=== PATIENT | male | born 1945 | race Caucasian/White ===

== ENCOUNTER 2018-04-05 01:40 | Emergency (ER) | payer MEDICARE, OTHER ==
[~2018-04-05] VITALS: Ht 165.1 cm; Wt 65.8 kg
[~2018-04-05 01:40] MED LIST: ALLOPURINOL300 MG PO; ATENOLOL50 MG; LISINOPRIL10 MG PO; METFORMIN HCL500 MG PO; PRAVASTATIN SOD40 MG; RANITIDINE HCL300 MG; TAMSULOSIN HCL0.4 MG
--- NOTE | 2018-04-05 03:58 | Diagnostic Imaging Report ---
FOOT RIGHT COMPLETE Comparison: None Clinical history: Crate fell on foot, pain Findings: See impression. Mild midfoot and first MTP degenerative changes. Plantar calcaneal spur. Vascular calcifications. Impression: Comminuted, essentially nondisplaced fracture of the first digit proximal phalanx with intra-articular extension into the IP joint. Associated soft tissue swelling. Signed by: Dr Mery Cota MD on 04/05/2018 3:55 AM
[2018-04-05] MEDS ORDERED: LIDOCAINE 5% PATCH TP SCH (04:30)
[2018-04-05] MEDS ORDERED: TRAMADOL HCL 50 MG TAB PO ONE (04:45)
== END 2018-04-05 05:19 | disposition home or self-care (01) ==
LOC: ER 01:40
DX: M79.671 Pain in right foot (principal); S92.414A Nondisplaced fracture of proximal phalanx of right great toe, initial encounter for closed fracture; W20.8XXA Other cause of strike by thrown, projected or falling object, initial encounter; Y92.008 Other place in unspecified non-institutional (private) residence as the place of occurrence of the external cause
CPT/HCPCS: 99283

== ENCOUNTER → 2019-04-09 | Outpatient (CLI) | payer MEDICARE ==
--- NOTE | 2019-04-10 09:01 | Diagnostic Imaging Report ---
Bone Scan, delayed phase INDICATION: Other specified disorder of bone COMPARISON: None REPORT: Approximately 3 hours following intravenous administration of 25 mCi of Tc-99m MDP, delayed total body images in the anterior and posterior projections and selected spot images were obtained. Focal moderate to markedly increased tracer activity is seen on the right side of T8 and in the midline of L4. Otherwise, distribution of tracer activity is unremarkable throughout the skeletal system. No abnormal accumulation of tracer is seen in the soft tissues or urinary tract. IMPRESSION: Acute osteoblastic in T8 and L4 are nonspecific in appearance and may be due to an post-traumatic or inflammatory/degenerative process; less likely neoplastic process in this patient without a diagnosis of cancer. Signed by: Dr. Tonja Godinez M.D. on 04/10/2019 8:58 AM
== END ==
LOC: NM 08:43
PROVIDERS: ATTEND Internal Medicine
DX: M85.80 Other specified disorders of bone density and structure, unspecified site (principal)
CPT/HCPCS: 78306; A9503

== ENCOUNTER 2019-08-10 10:49 | Emergency (ER) | payer MEDICARE ==
[~2019-08-10] VITALS: Ht 165.1 cm; Wt 65.8 kg
--- OUTSIDE RECORDS SUMMARY | 2019-08-10 10:51 | XMS REPORT ---
Author Author [facility] t Organization [facility] Address Unknown Phone Unavailable Care Team Providers Care Outdoor Studies Professor Name Role Phone NONSTAFF PP Unavailable Chuyita GUO Unavailable Unavailable Wade BUSTAMANTE Unavailable Unavailable Payers Payer Name Policy Type Policy Number Effective Date Expiration D ate [employer] Medicare Advantage [id number] 2008 00:00:00 [facility] [id number] Problems Condition Name Condition Details Condition Category Status Onset Date Resolution Date Last Treatment Date Treating Clinician Comments Urinary tract infection Urinary tract infection Problem Active Allergies, Adverse Reactions, Alerts This patient has no known allergies or adverse reactions. Medications Ordered Medication Name Filled Medication Name Start Date Stop Da te Current Medication? Ordering Clinician Indication Dosage Frequency Signature (SIG) Comments Components Allopurinol 300 Mg Tablet Allopurinol 300 Mg Tablet Yes 300 Twice A Day Atenolol 50 Mg Tablet Atenolol 50 Mg Tablet Yes Daily Lisinopril 10 Mg Tablet Lisinopril 10 Mg Tablet Yes 40 Daily Metformin Hcl 500 Mg Tablet Metformin Hcl 500 Mg Tablet Yes 500 Twice A Day Pravastatin Sodium 40 Mg Tablet Pravastatin Sodium 40 Mg Tablet Yes 40 Bedtime Ranitidine Hcl 300 Mg Tablet Ranitidine Hcl 300 Mg Tablet Y es Bedtime Tamsulosin Hcl 0.4 Mg Cap.er.24h Tamsulosin Hcl 0.4 Mg Cap.er.24h Yes Daily Encounters Start Date/Time End Date/Time Encounter Type Admission Type [facility] Care Department Encounter ID 2018-04-05 01:40:00 2018-04-05 05:19:00 Departed Emergency Room 1 [facility] [id number] Results Test Description Test Time Test Comments Text Results Atomic Results Result Comments BONE DXA DUAL ENERGY 2019-04-29 16:19:00 [place] [address] Patient Name: MANUEL MAHAN MR #: [id number] : 1945 Age/Sex: 73/M Req #: [id number] Adm Physician: Ordered by: SHEBA GUO MD Report #: [id number] Location: DX Room/Bed: Procedure: [id number] DX/BONE DXA DUAL ENERGY Exam Date: Exam Time: REPORT STATUS: Signed Exam: Bone mineral density study. History: 73-year-old male. Comparison: None. Discussion: Evaluation of the left hip and lumbar spine was performed utilizing DEXA Hologic bone densitometer. The study is technically adequate. The patient's fracture risk is compared to an age-matched control. Lumbar spine total bone mineral density: 1.367 gm/cm2, T-score is 2.5, Z-score is 3.6. No previous comparison. Left femoral neck bone mineral density: 0.805 g/cm2, T-score is -0.9, Z-score is 0.4. No previous comparison.. Impression: Bone mineralization by WHO Classification using T score is normal, fracture risk is low. <T score: NL = -1 or higher Osteopenia = -1 to -2.5 Osteoporosis = -2.5 or lower Z score: < - 1.5 concerning for path> Recommendations: Medical evaluation for secondary causes of low bone mineral density may be appropriate. Correlate clinically for the necessity and timing of the next bone mineral density study. National Osteoporosis Foundation recommendations: Initiate therapy to reduce fracture risk in postmenopausal women with -BMD t-scores below -2 by central DXA with no risk factors -BMD t-scores below -1.5 by central DXA with one or more risk factors (first deg relative with hip fracture, prior personal fracture, low body weight, smoking) -A prior vertebral or hip fracture AACE (Clinical Endocrinology) recommends treating the following: Postmenopausal women who have osteoporosis as diagnosed by fragility fractures or t scores -2.5 or below Postmenopausal women who have risk factors (including fh of hip fractur e, low body weight, smoking, risk of falling, high bone turnover, advancing age) and borderline low BMD T scores of -1.5 or below Adequate intake of calcium (at least 1200mg/day) and vitamin D (400-800 IU/day). Regular weight bearing and muscle - strengthening exercises Avoid smoking and excessive alcohol Signed by: Marcos Mena on 04/29/2019 4:20 PM Dictated By: MARCOS MENA MD 19 Transcribed By: DENA on 04/29/19 1620 COPY TO: SHEBA GUO MD BONE and/or JOINT WHOLE BODY 2019-04-10 08:49:00 [place] [address] Patient Name: MANUEL MAHAN MR #: [id number] : 1945 Age/Sex: 73/M Req #: [id number] Adm Physician: Ordered by: SHEBA GUO MD Report #: [id number] Location: [place] Room/Bed: Procedure: [id number] NM/BONE and/or JOINT WHOLE BODY Exam Date: 04/09/19 Exam Time: 1000 REPORT STATUS: Signed Bone Scan, delayed phase INDICATION: Other specified disorder of bone COMPARISON: None REPORT: Approximately 3 hours following intravenous administration of 25 mCi of Tc-99m MDP, delayed total body images in the anterior and posterior projections and selected spot images were obtained. Focal moderate to markedly increased tracer activity is seen on the right side of T8 and in the midline of L4. Otherwise, distribution of tracer activity is unremarkable throughout the skeletal system. No abnormal accumulation of tracer is seen in the soft tissues or urinary tract. IMPRESSION: Acute osteoblastic in T8 and L4 are nonspecific in appearance and may be due to an post-traumatic or inflammatory/degenerative process; less likely neoplastic process in this patient without a diagnosis of cancer. Signed by: Dr. Carmen Godinez M.D. on 04/10/2019 8:58 AM Dictated By: CARMEN GODINEZ MD 7 Transcribed By: DENA on 04/10/19857 COPY TO: SHEBA GUO MD FOOT RIGHT COMPLETE 2018-04-05 03:51:00 [place] [address] Patient Name: MANUEL MAHAN MR #: [id number] : 1945 Age/Sex: 72/M Req #: [id number] Adm Physician: Ordered by: BRENT BUSTAMANTE MD Report #: [id number] Location: ER Room/Bed: Procedure: [id number] DX/FOOT RIGHT COMPLETE Exam Date: 04/05/18 Exam Time: 0305 REPORT STATUS: Signed FOOT RIGHT COMPLETE Comparison: None Clinical history: Crate fell on foot, pain Findings: See impression. Mild midfoot and first MTP degenerative changes. Plantar calcaneal spur. Vascular calcifications. Impression: Comminuted, essentially nondisplaced fracture of the first digit proximal phalanx with intra-articular extension into the IP joint. Associated soft tissue swelling. Signed by: Dr Selvin Cota MD on 04/05/2018 3:55 AM Dictated By: SELVIN COTA MD 4 Transcribed By: DENA on 04/05/18354 COPY TO: BRENT BUSTAMANTE MD
[2019-08-10] MEDS ORDERED: DIAZEPAM 5 MG TAB PO ONE (11:15)
[2019-08-10] MEDS ORDERED: LIDOCAINE 4% PATCH TP ONE (11:15)
--- NOTE | 2019-08-10 11:44 | NUR ---
Meds given as ordered.
[2019-08-10 12:53] VITALS: BP 135/78
== END 2019-08-10 13:20 | disposition home or self-care (01) ==
LOC: ER 10:49
DX: M43.6 Torticollis (principal); I10 Essential (primary) hypertension; E11.9 Type 2 diabetes mellitus without complications; E78.5 Hyperlipidemia, unspecified; I48.91 Unspecified atrial fibrillation; K21.9 Gastro-esophageal reflux disease without esophagitis
CPT/HCPCS: 99283

== ENCOUNTER 2021-04-08 17:29 | Emergency (ER) | payer MEDICARE ==
[~2021-04-08] VITALS: Ht 165.1 cm; Wt 65.8 kg
[2021-04-08 20:13] LABS: CLARITY,URINE CLOUDY (CLEAR); COLOR,URINE YELLOW (YELLOW); KETONES,URINE NEGATIVE (NEGATIVE); LEUKOCYTE ESTERASE ,URINE SMALL (NEGATIVE); NITRITE,URINE NEGATIVE (NEGATIVE); PROTEIN,URINE DIPSTICK 2+ (NEGATIVE)
[2021-04-08 20:14] LABS: URINE UROBILINOGEN 4 mg/dL (0.2 - 1)
[2021-04-08 20:19] LABS: BACTERIA,URINE MANY /HPF; EPITHELIAL CELLS,URINE FEW /LPF; RBC,URINE 0-5 /HPF (0-5); WBC,URINE (MAN) >50 /HPF (0-5)
[2021-04-08] MEDS ORDERED: CEPHALEXIN 500 MG CAP PO ONE (20:45)
[2021-04-08] MEDS ORDERED: CEPHALEXIN500 MG PO (20:45)
[2021-04-08] MEDS ORDERED: CEPHALEXIN 500 MG CAP ONE (20:56)
== END 2021-04-08 20:55 | disposition home or self-care (01) ==
LOC: ER 18:00
DX: R39.15 Urgency of urination (principal); N39.0 Urinary tract infection, site not specified; I10 Essential (primary) hypertension; E11.9 Type 2 diabetes mellitus without complications; E78.5 Hyperlipidemia, unspecified; K21.9 Gastro-esophageal reflux disease without esophagitis; I48.91 Unspecified atrial fibrillation; Z87.442 Personal history of urinary calculi
CPT/HCPCS: 81001

== ENCOUNTER 2021-10-28 15:23 | Emergency (ER) | payer MEDICARE ==
[~2021-10-28] VITALS: Ht 182.9 cm; Wt 86.2 kg
[~2021-10-28 15:23] MED LIST changes: +CEPHALEXIN500 MG PO
== END 2021-10-28 17:24 | disposition home or self-care (01) ==
LOC: ER 15:28
DX: M25.571 Pain in right ankle and joints of right foot (principal); F03.90 Unspecified dementia, unspecified severity, without behavioral disturbance, psychotic disturbance, mood disturbance, and anxiety; I10 Essential (primary) hypertension; E11.9 Type 2 diabetes mellitus without complications; I48.91 Unspecified atrial fibrillation; E78.5 Hyperlipidemia, unspecified; K21.9 Gastro-esophageal reflux disease without esophagitis; Z87.442 Personal history of urinary calculi
CPT/HCPCS: 99282

== ENCOUNTER 2024-02-21 19:32 | Emergency (ER) | payer MEDICARE ==
[~2024-02-21] VITALS: Ht 165.1 cm; Wt 61.2 kg
[~2024-02-21 19:32] MED LIST changes: +INDOMETHACIN50 MG PO
[2024-02-21 20:16] VITALS: PULSE 68; RESP 16; TEMP 98.5
[2024-02-21 21:01] VITALS: BP 149/73; PULSE 69; RESP 17; TEMP 97.7; O2SAT 98
== END 2024-02-21 21:05 | disposition home or self-care (01) ==
LOC: ER 19:38
DX: S61.211A Laceration without foreign body of left index finger without damage to nail, initial encounter (principal); W45.8XXA Other foreign body or object entering through skin, initial encounter; Y92.89 Other specified places as the place of occurrence of the external cause; Z79.01 Long term (current) use of anticoagulants
CPT/HCPCS: 99282